=== PATIENT | male | born 1955 | race Caucasian/White ===

== ENCOUNTER 2022-12-26 20:12 | Emergency (ER) | payer MEDICARE, SELFPAY ==
--- NOTE | ~2022-12-26 | CT_ITS ---
CT head without contrast Indication: Altered mental status Technique: Serial scans were obtained through the brain without the administration of contrast. Dose reduction technique was used on this scan by utilizing automated exposure control and iterative recon struction technique. The dose-length product (DLP) was 605.33 mGy-cm. Findings: There is no evidence of intracranial hemorrhage, mass lesion, or acute infarct. The ventri cles and subarachnoid spaces are dilated, consistent with moderate atrophy. Low attenuation regions are seen within the periventricular white matter bilaterally, likely representing changes from chroni c microvascular ischemic disease. There is no evidence of edema, mass effect or midline shift. The visualized paranasal sinuses and mastoid air cells are clear. Impression: No intracranial hemorrhage, mass, or acute infarct. Atrophy and chronic white matter changes, as above. Reviewed, dictated and finalized at location . Impression: No intracranial hemorrhage, mass, or acute infarct. Atrophy and chronic white matter changes, as above.
[2022-12-26 20:41] VITALS: BP 114/73; PULSE 100; RESP 18; TEMP 36.9; O2SAT 96
--- NOTE | 2022-12-26 20:45 | ECG_ITS ---
Measurements Intervals [place] Rate: 98 P: 15 TN: 164 QRS: -37 QRSD: 66 T: 30 QT: 323 QTc: 413 Interpretive Statements SINUS RHYTHM LOW QRS VOLTAGE IN PRECORDIAL LEADS [QRS DEFLECTION < 1.0 mV IN CHEST LEADS] PATTERN CONSISTENT WITH PULMONARY DISEASE INFERIOR MYOCARDIAL INFARCTION , PROBABLY OLD [40+ ms Q WAVE AND/OR ST/T ABNORMALITY IN II/aVF] ABNORMAL ECG NO PREVIOUS ECG AVAILABLE FOR COMPARISON Electronically Signed On 12-27-2022 17:10:51 CDT by Abhilash Leiva M.D.
[2022-12-26 21:15] LABS: Basophils Absolute Auto 0.1 K/mm3 (0.0-0.1); Basophils Percent Auto 1.1 % (0.2-1.2); Eosinophils Absolute Auto 0.2 K/mm3 (0-0.3); Eosinophils Percent Auto 1.9 % (0-4.4); Hematocrit 45.2 % (42.0-52.0); Hemoglobin 14.7 g/dL (14.0-18.0); Immature Granulocyte Absolute 0.02 K/mm3 (0.00-0.031); Immature Granulocyte Percent A 0.2 % (0-0.5); Lymphocytes Absolute Auto 1.99 K/mm3 (0.9-3.2); Lymphocytes Percent Auto 22.3 % (18.3-44.2); Mean Corpuscular HGB Conc 32.5 g/dl (32-36); Mean Corpuscular Hemoglobin 30.6 pg (26-34); Mean Corpuscular Volume 94.2 fl (80-100); Mean Platelet Volume 9.3 fl (7.4-10.4); Monocytes Absolute Auto 0.6 K/mm3 (0.1-0.6); Monocytes Percent Auto 6.5 % (2.6-8.5); Neutrophils Absolute Auto 6.1 K/mm3 (1.3-6.7); Platelet Count Result 218 k/mm3 (150-375); Red Cell Distribution Width 12.8 % (11.5-14.5); White Blood Count 8.9 K/mm3 (4.5-10.0)
[2022-12-26 21:24] LABS: Ethanol < 10 mg/dL (<10)
[2022-12-26 21:26] LABS: Alanine Aminotransferase 23 U/L (6-50); Albumin Level 4.7 g/dL (3.5-5.1); Alkaline Phosphatase 62 U/L (38-126); Anion Gap 10 mmol/L (8-16); Aspartate Amino Transferase 21 U/L (17-59); Bilirubin,Total 0.7 mg/dL (0.2-1.3); Blood Urea Nitrogen 21 mg/dL (9-20); Calcium 9.4 mg/dL (8.4-10.2); Carbon Dioxide 24 mmol/L (22-30); Chloride 100 mmol/L (98-107); Estimated Glomerular Filt Rate > 60; Glucose 177 mg/dL (65-110); Sodium 134 mmol/L (137-145)
[2022-12-26 21:32] LABS: Partial Thromboplastin Time 26.2 SECONDS (22.3-36.8); Prothrombin Time 13.2 Seconds (11.1-14.7)
[2022-12-27 00:20] VITALS: BP 146/86; PULSE 97; RESP 15; O2SAT 100
[2022-12-27 04:41] VITALS: BP 131/77; PULSE 85; RESP 14; O2SAT 100
--- NOTE | 2022-12-27 04:42 | PC.NURSE ---
Pt continues to refuse straight catheter. Pt states If you would have been in here earlier you would have gotten the sample! . Pt has urinal at bedside and states he will continue to try.
--- NOTE | 2022-12-27 05:26 | PC.NURSE ---
This RN spoke with nurse Pamela from [facility] in [place]. Pt is a pt at their facility who went missing from facility 24 hours ago.
[2022-12-27 06:03] LABS: Appearance Urine Cloudy (Clear); Bacteria Urine Rare /hpf; Bilirubin Urine Negative (Negative); Blood Urine Trace (Negative); Color Urine Yellow (Yellow); Glucose Urine UA 1+ mg/dL (Negative); Ketones Urine Negative (Negative); Leukocyte Esterase Ur 1+ LEU/UL (Negative); Nitrate Urine Positive (Negative); Non Pathogenic Casts 0-2; Protein Urine 1+ mg/dL (Negative); RBC Urine 0-2 /hpf (0-2); Specific Grav Ur 1.018 (1.001-1.035); Squamous Epithelial Cell Urine Occasional /hpf (Few); Urobilinogen Urine 0.2 mg/dL (<2.0); WBC Urine 21-50 /hpf
[2022-12-27 06:11] LABS: Add Urine Microscopic? YES
[2022-12-27 06:23] VITALS: BP 141/78; PULSE 80; RESP 15; O2SAT 99
--- NOTE | 2022-12-27 06:49 | ED.AMS ---
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 He was reportedly driving erratically earlier and got pulled over by police. EMS found him to also be slightly confused and thought he might be under the influence. On my exam, he states I'm falling apart. Patient denies drinking alcohol today though does state he drinks alcohol regularly but not daily. He admits that he was driving erratically and in general feels like he has been more confused today than usual, such that he felt his speech was even slurred and he was speaking with mush mouth. He also felt like his equilibrium was off. He notes he fell 6 months ago but not recently. Patient states his strokes affected his left side and he was initially with full paralysis but he has regained some strength in these extremities. Denies CP, abdominal pain. He states he occasionally has vision changes but denies them at present. Related Data Allergies Allergy/AdvReac Type Severity Reaction Status Date / Time codeine AdvReac Mild Nausea Verified 12/27/22 06:52 [facility] Past Medical History Medical History CVA (cerebral vascular accident) x2 Social History Social History (Updated 12/28/22 @ 10:03 by Tootie Azul MD) Alcohol intake: current Alcohol use details: denies daily consumption Living arrangements: assisted living Additional living arrangements comments: [facility] [place] Exam Const: General: no acute distress and alert; No diaphoretic Nutritional Appearance: well nourished and obese Other: malodorous with odor of urine HENMT: Head: normal to inspection Eyes: Conjunctivae: conjunctivae normal EOM: EOMs intact bilaterally Other: without nystagmus. Peripheral arnold intact. Resp: Effort & Inspection: normal respiratory effort Other: speaks in full sentences Cardio: Rate: regular rate, not bradycardic and not tachycardic Rhythm: regular rhythm GI: Inspection: distended GI Palp: Yes Soft to palpation Neuro: General: moves all extremities Speech: normal speech (without aphasia or dysarthria) Other: Able to lift extremities x4 off the bed, though ROM difficult in left arm secondary to L shoulder pain. Can not perform serial 7s (performs first subtraction but unable to perform second calculation). Spells [id number] backwards. Ataxia with difficulty with [id number] in L leg. Intention tremor in bilateral upper extremities while performing [id number] but otherwise able to complete task. Can name objects as well as what they do, showing executive function. Gait slightly impaired, shuffled at first and difficulty initiating step. Psych: Attitude: cooperative Other: affect slightly strange. Tangential speach but re-directable. Course Vital Signs Vital signs: Vital Signs Temperature 98.5 F 12/26/22 20:41 Pulse Rate 100 12/26/22 20:41 Respiratory Rate 18 12/26/22 20:41 Blood Pressure 114/73 12/26/22 20:41 Pulse Oximetry 96 12/26/22 20:41 Oxygen Delivery Room Air 12/26/22 20:41 Temperature 98.3 F 12/27/22 07:59 Pulse Rate 83 12/27/22 07:15 Respiratory Rate 16 12/27/22 07:15 Blood Pressure 114/68 12/27/22 07:15 Pulse Oximetry 98 12/27/22 07:15 Oxygen Delivery Room Air 12/26/22 20:41 MDM - Altered Mental Status MDM Narrative Medical decision making narrative: Patient presents with concern for AMS. Differental is broad as below. He is otherwise hemodynamically stable with VS within normal limits (afebrile, not hypoxic). There is a delay in obtaining UA as patient initially states he has to urinate but can not produc
[2022-12-27 07:15] VITALS: BP 114/68; PULSE 83; RESP 16; O2SAT 98
--- NOTE | 2022-12-27 07:29 | PC.NURSE ---
Pt is A/O x 4, no distress, getting dressed for d/c
[2022-12-27 07:59] VITALS: TEMP 36.8
== END 2022-12-27 08:00 ==
PROVIDERS: Emergency Provider Student in an Organized Health Care Education/Training Program; PCP Internal Medicine
DX: N39.0 Urinary tract infection, site not specified (principal); R41.82 Altered mental status, unspecified; I69.354 Hemiplegia and hemiparesis following cerebral infarction affecting left non-dominant side
CPT/HCPCS: 36415; 70450; 80053; 80307; 81001; 85025; 85055; 85610; 85730; 87077; 87086; 87186; 93005; 96365; 99284; J0696